=== PATIENT | male | born 1990 | race African-American/Black ===

== ENCOUNTER 2017-05-02 19:01 | Inpatient (IN) | payer OTHER ==
[~2017-05-02] VITALS: Ht 177.8 cm; Wt 101.3 kg
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
[2017-05-02 20:46] LABS: ABSOLUTE BASOPHIL COUNT 0 /CUMM (0.0-0.2); ABSOLUTE EOSINOPHIL COUNT 0 /CUMM (0.0-0.7); ABSOLUTE GRANULOCYTE CT 12.3 /CUMM (1.4-6.5); ABSOLUTE LYMPH COUNT 0.7 /CUMM (1.2-3.4); ABSOLUTE MONOCYTE COUNT 0.5 /CUMM (0.10-0.60); BASOPHIL % 0.3 % (0.0-2.0); EOSINOPHIL % 0.1 % (0-5); HEMATOCRIT 47.2 % (42-52); MEAN CORPUSCULAR HGB 33.8 PG (27.0-31.0); MEAN CORPUSCULAR HGB CONC 34.1 G/DL (33.0-37.0); PLATELET COUNT 289 /CUMM (130-400); RBC DISTRIBUTION WIDTH 13.9 % (11.5-14.5); RED BLOOD CELL CT 4.77 /CUMM (4.70-6.10); WHITE BLOOD CELL COUNT 13.6 /CUMM (4.8-10.8)
[2017-05-02 20:58] LABS: GRANULOCYTE % 90.2 % (42.2-75.2)
--- NOTE | 2017-05-02 21:28 | ULTRASOUND REPORT ---
EXAMINATION: US ABDOMEN LIMITED CLINICAL INFORMATION: Epigastric, right upper abdominal quadrant and right flank pain. COMPARISON: None TECHNIQUE: Real-time imaging of the right upper quadrant abdominal viscera. The study is technically difficult and limited due to presence of intra-abdominal bowel gas and patient's body habitus. FINDINGS: PANCREAS: Obscured from visualization due to overlying bowel gas. LIVER: Limited evaluation. The liver is normal in size. Visualized liver contour is normal. There is increased liver parenchymal echogenicity consistent with steatosis. No intrahepatic biliary ductal dilatation. GALLBLADDER: Normal. The gallbladder is physiologically distended without evidence of stones, sludge, polyps, wall thickening or pericholecystic fluid. COMMON BILE DUCT: Normal in caliber measuring 0.3 cm in diameter. RIGHT KIDNEY: Normal. No hydronephrosis. No renal calculi or focal parenchymal lesions. The kidney measures 10.6 cm in maximum dimension. FREE FLUID: Trace fluid is noted in the Morison's pouch. IMPRESSION: 1. Hepatic steatosis. 2. Pancreas is not evaluated. 3. Trace free fluid in the Morison's pouch, for unclear etiology. 4. No evidence of renal calculi or hydronephrosis.
[2017-05-02 21:43] LABS: PT 11.4 SEC (9.4-12.5); PTT 32 SEC (25-37)
--- NOTE | 2017-05-02 22:29 | CT SCAN REPORT ---
EXAMINATION: CT ABDOMEN AND PELVIS WITH CONTRAST CLINICAL INFORMATION: Right upper quadrant pain. Elevated LFTs COMPARISON: Ultrasound same-day TECHNIQUE: Multidetector volumetric imaging was performed of the abdomen and pelvis following IV administration of 95 mL of Optiray 320 intravenous contrast. Sagittal and coronal reformatted images were obtained on the technologist's workstation. DLP: 707 mGy-cm FINDINGS: LUNG BASES: The visualized lung bases are unremarkable. LIVER, GALLBLADDER, AND BILIARY TREE: Moderate hepatomegaly with changes of diffuse hepatic steatosis. No discrete lesion or biliary abnormality. Gallbladder contracted. PANCREAS: Pancreas is diffusely but mildly inflamed. It enhances normally. Pancreatic duct normal. No gross choledocholithiasis. No fluid collection. No lymphadenopathy. SPLEEN: Unremarkable. ADRENAL GLANDS: Unremarkable. KIDNEYS AND URETERS: The kidneys are normal in size, shape, and attenuation. No hydronephrosis, hydroureter, or calculi seen. No perinephric stranding. BLADDER: Unremarkable. GASTROINTESTINAL TRACT: There is a staple line within the central abdomen anteriorly which appears to be related to an enteroenteric anastomosis. There is a large air-fluid level at this anastomosis which is focally prominent. No evidence for obstruction. Remainder the small bowel appears decompressed and normal. No colonic abnormality. ABDOMINAL WALL: No significant hernia is appreciated. LYMPH NODES: Normal. VASCULAR: Unremarkable. PELVIC VISCERA: Unremarkable. OSSEOUS STRUCTURES: Unremarkable. IMPRESSION: 1. Changes of diffuse mild hepatitis uncomplicated. This is consistent with potentially various entities including autoimmune pancreatitis. Correlate clinically. 2. Hepatomegaly changes of diffuse hepatic steatosis. 3. Focal dilatation about an enteroenteric anastomosis. No definite transition zone to indicate obstruction. This may be related to a focal ileus. Consider follow-up CT or MR enterography of a small bowel etiology or abnormality is suspected.
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
[2017-05-03 00:56] VITALS: BP 148/96
--- NOTE | 2017-05-03 04:34 | Admission Certification ---
Admission Certification Certification Statement - As attending physician, I certify that at the time of - admission, based on clinical presentation, severity of - symptoms, need for further diagnostic testing and - therapeutic interventions, and risk of adverse outcomes - without in-hospital treatment, in my clinical assessment, - this patient requires an acute hospital stay for a minimum - of two nights or longer. I have also considered psychsocial - factors such as support system, advanced age, financial - issues, cognitive issues, and failed out-patient treatments, - past re-admission history, safety of patient, and lack of - compliance as applicable. Specific rationale supporting this admission is: Acute pancreatitis secondary to alcohol
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
[2017-05-03 07:10] VITALS: BP 144/92
[2017-05-03 08:18] LABS: PT 11.9 SEC (9.4-12.5)
[2017-05-03 08:25] LABS: ABSOLUTE BASOPHIL COUNT 0 /CUMM (0.0-0.2); ABSOLUTE EOSINOPHIL COUNT 0.1 /CUMM (0.0-0.7); ABSOLUTE GRANULOCYTE CT 8.9 /CUMM (1.4-6.5); ABSOLUTE LYMPH COUNT 1.2 /CUMM (1.2-3.4); ABSOLUTE MONOCYTE COUNT 0.7 /CUMM (0.10-0.60); BASOPHIL % 0.3 % (0.0-2.0); EOSINOPHIL % 0.8 % (0-5); GRANULOCYTE % 81.4 % (42.2-75.2); HEMATOCRIT 42.5 % (42-52); MEAN CORPUSCULAR HGB 33.9 PG (27.0-31.0); MEAN CORPUSCULAR VOLUME 99.8 FL (80.0-94.0); MEAN PLATELET VOLUME 9.5 FL (7.4-10.4); PLATELET COUNT 252 /CUMM (130-400); RBC DISTRIBUTION WIDTH 14.1 % (11.5-14.5); RED BLOOD CELL CT 4.26 /CUMM (4.70-6.10); WHITE BLOOD CELL COUNT 10.9 /CUMM (4.8-10.8)
[2017-05-03 13:57] VITALS: BP 160/82
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
--- NOTE | 2017-05-03 19:16 | Patient Discharge Instructions ---
Discharge Instructions General Discharge Information You were seen/treated for: Acute pancreatitis, Alcohol use disorder Watch for these problems: Fever, chest pain, shortness of breath Special Instructions: Please follow up with primary care and gastroenterology. Your LFTs should be followed up as an outpatient & if they remain elevated, consideration could be made for liver biopsy and/or ultrasound. Diet Continue normal diet: Yes Recommended Diet: No alcohol Activity Full Activity/No Limits: Yes Acute Coronary Syndrome Inclusion Criteria At DC or during hospital stay patient has or had the following: ACS DIAGNOSIS No Discharge Core Measures Meds if any: Prescribed or Continued at Discharge Meds if any: NOT Prescribed or Continued at Discharge Congestive Heart Failure Inclusion Criteria At DC or during hospital stay patient has or had the following: CHF DIAGNOSIS No Discharge Core Measures Meds if any: Prescribed or Continued at Discharge Meds if any: NOT Prescribed or Continued at Discharge Cerebrovascular accident Inclusion Criteria At DC or during hospital stay patient has or had the following: CVA/TIA Diagnosis No Discharge Core Measures Meds if any: Prescribed or Continued at Discharge Meds if any: NOT Prescribed or Continued at Discharge Venous thromboembolism Inclusion Criteria VTE Diagnosis No VTE Type NONE VTE Confirmed by (Test) NONE Discharge Core Measures - Per Current guidelines, there needs to be overlap - treatment for the first 5 days of Warfarin therapy. - If discharged on Warfarin prior to 5 days of - overlap therapy, the patient will need to be - assessed for post discharge needs including - *Post discharge parental anticoagulation - *Warfarin and/or parental anticoagulation education - *Follow up date to check INR post discharge At least 5 days overlap therapy as Inpatient No Meds if any: Prescribed or Continued at Discharge Note: Overlap Therapy is Warfarin and Anticoagulant Meds if any: NOT Prescribed or Continued at Discharge
[2017-05-03 21:25] VITALS: BP 140/88
[2017-05-04 06:11] VITALS: BP 146/110
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
[2017-05-04 11:43] VITALS: BP 122/80
== END 2017-05-04 14:06 | DRG 282 ==
LOC: ERH 19:01 → ERHI 23:22 → 2NB 23:22 → ENRESERV 05-03 00:06 → 2NB 05-03 00:49 → ENPENDDIS 05-04 10:27 → 2NB 05-04 14:06
PROVIDERS: Internal Medicine; Physician Assistant
DX: K85.20 Alcohol induced acute pancreatitis without necrosis or infection (principal); F10.239 Alcohol dependence with withdrawal, unspecified; K70.10 Alcoholic hepatitis without ascites; R74.0 Nonspecific elevation of levels of transaminase and lactic acid dehydrogenase [LDH]; F17.200 Nicotine dependence, unspecified, uncomplicated; E83.52 Hypercalcemia; Z90.49 Acquired absence of other specified parts of digestive tract; F12.90 Cannabis use, unspecified, uncomplicated
CPT/HCPCS: 2NBSP; 84133; 84300; ERO; 36592; 74177; 80307; 81001; 82436; 82570; 93005; 93010; 96374; 96375; G0480; J1644; J1650; J1885; J2405